=== PATIENT | female | born 2000 | race African-American/Black ===

== ENCOUNTER 2022-07-12 12:07 | Emergency (ER) | payer SELFPAY ==
[2022-07-12] MEDS ORDERED: Haloperidol Lactate 5 MG/ML VIAL ONE (12:58)
[2022-07-12] MEDS ORDERED: diphenhydrAMINE 50 MG/ML VIAL ONE (12:58)
[2022-07-12] MEDS ORDERED: Ketorolac Tromethamine 30 MG/ML VIAL ONE (12:58)
== END 2022-07-12 14:30 | disposition home or self-care (01) ==
LOC: CSHERS 12:07
DX: F10.10 Alcohol abuse, uncomplicated (principal); E86.0 Dehydration
CPT/HCPCS: 96361; 96374; 96375; J1200; J1630; J1885